=== PATIENT | male | born 1995 | race African-American/Black ===

== ENCOUNTER 2020-05-26 19:50 | Emergency (ER) | payer MEDICAID ==
[~2020-05-26] VITALS: Ht 185.4 cm; Wt 92.1 kg
[2020-05-26 20:05] VITALS: Ht 185.4 cm; Wt 92.1 kg
[2020-05-26 21:52] VITALS: BP 133/91
== END 2020-05-26 21:53 | disposition home or self-care (01) ==
LOC: ED 19:50
DX: J20.9 Acute bronchitis, unspecified (principal); F17.210 Nicotine dependence, cigarettes, uncomplicated
CPT/HCPCS: 99406

== ENCOUNTER 2020-09-15 13:48 | Emergency (ER) | payer MEDICAID ==
[~2020-09-15] VITALS: Ht 185.4 cm; Wt 103.4 kg
[2020-09-15 14:17] VITALS: BP 121/62; Ht 185.4 cm; Wt 103.4 kg
[2020-09-15] MEDS ORDERED: CLARITIN10 MG PO (15:29)
[2020-09-15] MEDS ORDERED: PREDNISONE20 MG PO (15:29)
== END 2020-09-15 15:52 | disposition home or self-care (01) ==
LOC: ED 13:48
DX: K12.2 Cellulitis and abscess of mouth (principal); F17.210 Nicotine dependence, cigarettes, uncomplicated; Z71.6 Tobacco abuse counseling
CPT/HCPCS: 99406; J7512